=== PATIENT | male | born 1950 | race Caucasian/White ===

== ENCOUNTER 2023-09-14 14:38 | Inpatient (IN) | payer MEDICARE, BC ==
[~2023-09-14] VITALS: Ht 195.6 cm; Wt 93.4 kg
[2023-09-14] MEDS ORDERED: ISOVUE-370 76% 100ML VIAL As Ordered ONE (16:37)
[2023-09-14 16:46] LABS: LIPASE 37 U/L (12-53)
[2023-09-14 16:47] LABS: CK-MB VALUE MASS < 1.0 NG/ML (<3.6)
[2023-09-14 16:48] LABS: ALKALINE PHOSPHATASE 78 U/L (46-116); ALT/SGPT 23 U/L (7.0-40); AST/SGOT 15 U/L (<34); BILIRUBIN,TOTAL 1.6 MG/DL (0.3-1.2); BLOOD UREA NITROGEN 15 MG/DL (9-23); CALCIUM LEVEL 8.5 MG/DL (8.3-10.6); CARBON DIOXIDE LEVEL 25 MMOL/L (20-31); CHLORIDE LEVEL 109 MMOL/L (98-107); CREATININE FOR GFR 1.06 MG/DL (0.70-1.30); GLOMERULAR FILTRATION RATE > 60.0 (>42); GLUCOSE, FASTING 91 MG/DL (74-106); POTASSIUM SERUM 4.4 MMOL/L (3.5-5.1); SODIUM LEVEL 142 MMOL/L (136-145); TOTAL PROTEIN 5.7 G/DL (5.7-8.2)
[2023-09-14 16:57] LABS: CPK CREATINE PHOSPHOKINASE 42 U/L (46-171); MB/CK RELATIVE INDEX 2.38 (< OR =4)
[2023-09-14] MEDS ORDERED: KETOROLAC 30 MG/ML 1ML VIAL As Ordered ONE (17:23)
[2023-09-14] MEDS: HYDROCORTISONE 10 MG TAB PO ONE (17:35)
[2023-09-14] MEDS: KETOROLAC 30 MG/ML 1ML VIAL IV ONE (17:36)
[2023-09-14 19:00] LABS: VENOUS HCO3 26.4 MMOL/L (23.0-27.0); VENOUS O2 SATURATION 80.1 % (60.0-80.0); VENOUS PARTIAL PRESSURE CO2 48.4 mmHg (38.0-50.0); VENOUS PARTIAL PRESSURE O2 44.9 mmHg (30.0-50.0); VENOUS PH 7.355 UNITS (7.330-7.430); VENOUS TOTAL CO2 27.9 MMOL/L (24.0-28.0)
[2023-09-14 19:08] LABS: BASO # 0.1 10^3/uL (0.0-0.2); BASO % 0.4 % (0.0-1.0); EOS # 0.1 10^3/uL (0.0-0.5); EOS % 0.6 % (0.0-3.0); HEMATOCRIT 52.1 % (42.0-52.0); HEMOGLOBIN 17.1 g/dl (13.5-17.5); INR 1.18; LYMPH # 1.3 10^3/uL (1.5-5.0); LYMPH % 8.3 % (24.0-44.0); MEAN CORPUSCULAR HEMOGLOBIN 30.7 pg (27.0-33.0); MEAN CORPUSCULAR HGB CONC 32.8 g/dl (32.0-36.5); MEAN CORPUSCULAR VOLUME 93.5 fl (80.0-96.0); MONO # 1.2 10^3/uL (0.0-0.8); MONO % 7.6 % (2.0-8.0); NEUTROPHILS # 12.8 10^3/uL (1.5-8.5); NEUTROPHILS % 82.3 % (36.0-66.0); PLATELET COUNT, AUTOMATED 183 10^3/uL (150-450); PROTHROMBIN TIME 14.7 SECONDS (12.5-14.5); RED BLOOD COUNT 5.57 10^6/uL (4.30-6.10); WHITE BLOOD COUNT 15.6 10^3/uL (4.0-10.0)
[2023-09-14] MEDS ORDERED: HEPARIN SOD (PORCINE) 5000UNITS/ML 1ML VIAL/SYRINGE IV PRN ×2 (19:20→21:05)
[2023-09-14 19:48] LABS: CK-MB VALUE MASS < 1.0 NG/ML (<3.6); CPK CREATINE PHOSPHOKINASE 46 U/L (46-171); MB/CK RELATIVE INDEX 2.17 (< OR =4)
[2023-09-14 19:50] LABS: CK-MB VALUE MASS < 1.0 NG/ML (<3.6); CPK CREATINE PHOSPHOKINASE 36 U/L (46-171); MB/CK RELATIVE INDEX 2.77 (< OR =4)
[2023-09-14 19:56] LABS: HEMATOCRIT 52.1 % (42.0-52.0); HEMOGLOBIN 16.9 g/dl (13.5-17.5); MEAN CORPUSCULAR HEMOGLOBIN 30.3 pg (27.0-33.0); MEAN CORPUSCULAR HGB CONC 32.4 g/dl (32.0-36.5); MEAN CORPUSCULAR VOLUME 93.4 fl (80.0-96.0); PLATELET COUNT, AUTOMATED 198 10^3/uL (150-450); RED BLOOD COUNT 5.58 10^6/uL (4.30-6.10); WHITE BLOOD COUNT 15.6 10^3/uL (4.0-10.0)
[2023-09-14 19:58] LABS: INR 1.15; PARTIAL THROMBOPLASTIN TIME 24.9 SECONDS (24.8-34.2); PROTHROMBIN TIME 14.4 SECONDS (12.5-14.5)
[2023-09-14] MEDS ORDERED: PRAM0.5T4 PO (20:00)
[2023-09-14] MEDS ORDERED: HYDR-4468 PO ×2 (20:00)
[2023-09-14] MEDS ORDERED: LIOT5TAB6 PO (20:00)
[2023-09-14] MEDS ORDERED: TEST200I14 IM (20:00)
[2023-09-14] MEDS ORDERED: LEVO125T4 PO (20:00)
[2023-09-14] MEDS ORDERED: ATOR80TA59 PO (20:00)
[2023-09-14] MEDS ORDERED: THERTAB52 PO (20:04)
[2023-09-14] MEDS ORDERED: ASPI81TA26 PO (20:04)
[2023-09-14] MEDS ORDERED: COQ150CH PO (20:04)
[2023-09-14] MEDS ORDERED: DHEA50TA PO (20:04)
[2023-09-14] MEDS ORDERED: K2 P1TAB PO (20:04)
[2023-09-14] MEDS ORDERED: HOME MED LIST COMPLETE! XX SCH (20:05)
[2023-09-14] MEDS: HEPARIN SOD (PORCINE) 5000UNITS/ML 1ML VIAL/SYRINGE IV ONE (20:33)
[2023-09-14] MEDS: HEPARIN DRIP 25,000 UNITS in IV 1 EA IV SCH (20:39)
[2023-09-14] MEDS ORDERED: MAALOX 30 ML SUSP *UDC PO PRN (21:05)
[2023-09-14] MEDS ORDERED: MOM 30ML SUSPENSION UDC PO PRN (21:05)
[2023-09-14] MEDS ORDERED: KETOROLAC 30 MG/ML 1ML VIAL IV PRN (21:25)
[2023-09-14] MEDS: ATORVASTATIN 20 MG TAB PO SCH (23:37)
[2023-09-14] MEDS: PRAMIPEXOLE 0.25 MG TAB PO SCH (23:39)
[2023-09-14] MEDS: CO-ENZYME Q10 50 MG CAP PO SCH (23:39)
[2023-09-15] VITALS (49 sets, daily range): BP systolic 90–181; BP diastolic 50–90; TEMP 97.4–98.2; O2SAT 90–99
[2023-09-15] MEDS: ACETAMINOPHEN TAB 650MG DOSE (2X325MG) PO PRN (01:34)
[2023-09-15 02:44] LABS: HEMATOCRIT 49.8 % (42.0-52.0); HEMOGLOBIN 16.3 g/dl (13.5-17.5); MEAN CORPUSCULAR HEMOGLOBIN 30.2 pg (27.0-33.0); MEAN CORPUSCULAR HGB CONC 32.7 g/dl (32.0-36.5); MEAN CORPUSCULAR VOLUME 92.2 fl (80.0-96.0); PLATELET COUNT, AUTOMATED 183 10^3/uL (150-450); WHITE BLOOD COUNT 14.9 10^3/uL (4.0-10.0)
[2023-09-15 03:18] LABS: ALBUMIN 2.8 G/DL (3.2-5.2); ALKALINE PHOSPHATASE 69 U/L (46-116); ALT/SGPT 20 U/L (7.0-40); AST/SGOT 11 U/L (<34); BILIRUBIN,TOTAL 1.8 MG/DL (0.3-1.2); BLOOD UREA NITROGEN 16 MG/DL (9-23); CALCIUM LEVEL 8.2 MG/DL (8.3-10.6); CARBON DIOXIDE LEVEL 30 MMOL/L (20-31); CHLORIDE LEVEL 108 MMOL/L (98-107); CREATININE FOR GFR 1.02 MG/DL (0.70-1.30); GLOMERULAR FILTRATION RATE > 60.0 (>42); GLUCOSE, FASTING 92 MG/DL (74-106); POTASSIUM SERUM 3.7 MMOL/L (3.5-5.1); SODIUM LEVEL 142 MMOL/L (136-145); TOTAL PROTEIN 5.4 G/DL (5.7-8.2)
[2023-09-15] MEDS: LEVOTHYROXINE 125MCG TABLET (0.125MG) PO SCH (05:47)
[2023-09-15] MEDS: ASPIRIN 81MG ENTERIC TABLET PO SCH (08:39)
[2023-09-15] MEDS: MULTIVITAMINS/MINERALS THERAP 1 TAB PO SCH (08:39)
[2023-09-15] MEDS: DOCUSATE SODIUM 100MG CAPSULE PO SCH (08:39)
[2023-09-15] MEDS: PANTOPRAZOLE 40MG TAB (PROTONIX) PO SCH (09:00)
[2023-09-15] MEDS ORDERED: PRASTERONE 50 MG PO SCH (09:00)
[2023-09-15] MEDS ORDERED: ELIQ5TAB PO (09:56)
[2023-09-15] MEDS: HYDROCORTISONE 10 MG TAB PO SCH ×2 (10:07→12:00)
[2023-09-15] MEDS: MOM 30ML SUSPENSION UDC PO SCH (10:22)
[2023-09-15] MEDS ORDERED: ATROPINE SULF 1MG/10ML SYRINGE As Ordered ONE (10:50)
[2023-09-15] MEDS ORDERED: VASOPRESSIN INJ 20UNITS/ML 1ML VIAL As Ordered ONE (10:54)
[2023-09-15] MEDS ORDERED: DOBUTamine 500 MG/250 ML BAG IN D5W (2,000 MCG/ML) As Ordered ONE (10:55)
[2023-09-15] MEDS ORDERED: DOBUTamine HCL 500,000 MCG in IV 1 EA IV SCH (10:55)
[2023-09-15] MEDS: DOBUTamine HCL 500,000 MCG in IV 1 EA IV SCH (11:15)
[2023-09-15 11:16] LABS: MAGNESIUM LEVEL 1.7 MG/DL (1.8-2.4)
[2023-09-15] MEDS: VASOPRESSIN INJ 20 UNITS in NS 499 ML IV SCH (13:10)
[2023-09-15] MEDS: oxyCODONE 5MG TAB PO PRN (15:40)
[2023-09-15] MEDS ORDERED: MORPHINE 2 MG/ML 1ML VIAL IV PRN (16:50)
[2023-09-15] MEDS: HEPARIN DRIP 25,000 UNITS in IV 1 EA IV SCH (17:13)
[2023-09-16] VITALS (39 sets, daily range): BP systolic 135–164; BP diastolic 67–79; PULSE 72; TEMP 97.5–98.1; O2SAT 93–100
[2023-09-16 02:24] LABS: BASO # 0.1 10^3/uL (0.0-0.2); BASO % 0.4 % (0.0-1.0); EOS # 0.1 10^3/uL (0.0-0.5); EOS % 0.3 % (0.0-3.0); HEMATOCRIT 51.5 % (42.0-52.0); HEMOGLOBIN 16.9 g/dl (13.5-17.5); LYMPH % 6.7 % (24.0-44.0); MEAN CORPUSCULAR HEMOGLOBIN 30.7 pg (27.0-33.0); MEAN CORPUSCULAR HGB CONC 32.8 g/dl (32.0-36.5); MEAN CORPUSCULAR VOLUME 93.6 fl (80.0-96.0); MONO # 1.3 10^3/uL (0.0-0.8); MONO % 8.9 % (2.0-8.0); NEUTROPHILS # 12.2 10^3/uL (1.5-8.5); NEUTROPHILS % 82.7 % (36.0-66.0); PLATELET COUNT, AUTOMATED 202 10^3/uL (150-450); WHITE BLOOD COUNT 14.7 10^3/uL (4.0-10.0)
[2023-09-16 03:01] LABS: BLOOD UREA NITROGEN 14 MG/DL (9-23); CALCIUM LEVEL 8.2 MG/DL (8.3-10.6); CARBON DIOXIDE LEVEL 32 MMOL/L (20-31); CHLORIDE LEVEL 109 MMOL/L (98-107); CREATININE FOR GFR 0.95 MG/DL (0.70-1.30); GLOMERULAR FILTRATION RATE > 60.0 (>42); GLUCOSE, FASTING 100 MG/DL (74-106); POTASSIUM SERUM 4.4 MMOL/L (3.5-5.1); SODIUM LEVEL 143 MMOL/L (136-145)
[2023-09-16] MEDS: HYDROCORTISONE 10 MG TAB PO SCH (09:12)
[2023-09-16] MEDS: ENOXAPARIN 100MG/1ML SYRINGE (J1650 PER 10MG) SC SCH (10:15)
[2023-09-16] MEDS: LIOTHYRONINE 5 MCG PO SCH (20:27)
[2023-09-17 03:05] VITALS: BP 138/79; TEMP 97.3; O2SAT 96
[2023-09-17 06:04] LABS: BASO # 0.1 10^3/uL (0.0-0.2); BASO % 0.5 % (0.0-1.0); EOS # 0.3 10^3/uL (0.0-0.5); EOS % 2.3 % (0.0-3.0); HEMATOCRIT 48.1 % (42.0-52.0); HEMOGLOBIN 15.7 g/dl (13.5-17.5); LYMPH % 13.4 % (24.0-44.0); MEAN CORPUSCULAR HEMOGLOBIN 30.1 pg (27.0-33.0); MEAN CORPUSCULAR HGB CONC 32.6 g/dl (32.0-36.5); MEAN CORPUSCULAR VOLUME 92.3 fl (80.0-96.0); MONO # 1.3 10^3/uL (0.0-0.8); MONO % 8.5 % (2.0-8.0); NEUTROPHILS # 11.1 10^3/uL (1.5-8.5); NEUTROPHILS % 74.4 % (36.0-66.0); PLATELET COUNT, AUTOMATED 192 10^3/uL (150-450); RED BLOOD COUNT 5.21 10^6/uL (4.30-6.10); WHITE BLOOD COUNT 14.9 10^3/uL (4.0-10.0)
[2023-09-17 06:37] LABS: BLOOD UREA NITROGEN 17 MG/DL (9-23); CALCIUM LEVEL 8.2 MG/DL (8.3-10.6); CARBON DIOXIDE LEVEL 34 MMOL/L (20-31); CHLORIDE LEVEL 108 MMOL/L (98-107); CREATININE FOR GFR 1.16 MG/DL (0.70-1.30); GLOMERULAR FILTRATION RATE > 60.0 (>42); GLUCOSE, FASTING 84 MG/DL (74-106); POTASSIUM SERUM 3.9 MMOL/L (3.5-5.1); SODIUM LEVEL 144 MMOL/L (136-145)
[2023-09-17 08:07] VITALS: BP 162/72; TEMP 98.4; O2SAT 93
[2023-09-17] MEDS: TESTOSTERONE IM SCH (09:00)
[2023-09-17] MEDS ORDERED: OXYC-517 PO (09:10)
[2023-09-17] MEDS ORDERED: XARE15TA PO (10:56)
[2023-09-19 01:12] LABS: PROTEIN C FUNCTIONAL ACTIVITY 123 % normal (70-180); PROTEIN S FUNCTIONAL ACTIVITY 82 % normal (70-150)
[2023-09-19 01:29] LABS: CARDIOLIPIN IGA ANTIBODY < 2.0 APL-U/mL (<20.0); CARDIOLIPIN IGG ANTIBODY < 2.0 GPL-U/mL (<20.0); CARDIOLIPIN IGM ANTIBODY < 2.0 MPL-U/mL (<20.0)
[2023-09-19 17:50] LABS: DRVV SCREEN 39.5 SECONDS
[2023-09-19 18:15] LABS: PTT LUPUS TYPE ANTICOAG SCREEN 1.04 (0-1.20)
== END 2023-09-17 11:53 | disposition home or self-care (01) | DRG 176 ==
LOC: M ED 14:38 → M ED INP 21:05 → M PCU 23:53 → M ICU 09-15 10:48 → M PCU 09-16 12:59
PROVIDERS: ADMIT Preventive Medicine Undersea and Hyperbaric Medicine; ATTEND Internal Medicine Nephrology
PROC: B246ZZZ Ultrasonography of Right and Left Heart (ICD-10-PCS; principal; 2023-09-15)
DX: I26.94 Multiple subsegmental thrombotic pulmonary emboli without acute cor pulmonale (principal); E27.3 Drug-induced adrenocortical insufficiency; J98.11 Atelectasis; R91.1 Solitary pulmonary nodule; E29.1 Testicular hypofunction; E03.9 Hypothyroidism, unspecified; I69.311 Memory deficit following cerebral infarction; Z79.82 Long term (current) use of aspirin; Z79.890 Hormone replacement therapy; Z79.899 Other long term (current) drug therapy; E78.5 Hyperlipidemia, unspecified; R00.1 Bradycardia, unspecified; R55 Syncope and collapse; I95.9 Hypotension, unspecified

== ENCOUNTER → 2023-09-27 | Outpatient (REF) | payer MEDICARE, BC ==
[~2023-09-27] MED LIST: ASPI81TA26 PO; ATOR80TA59 PO; BENZ200C70 PO; CEFD300CAP PO; COQ150CH PO; DHEA50TA PO; ELIQ5TAB PO; HYDR-4468 PO; K2 P1TAB PO; LEVO125T4 PO; LIOT5TAB6 PO; OXYC-517 PO; PRAM0.5T4 PO; PRED20TA PO; TEST200I14 IM; THERTAB52 PO; XARE15TA PO
== END ==
LOC: M WUC 19:10
PROVIDERS: ATTEND Student in an Organized Health Care Education/Training Program
DX: J06.9 Acute upper respiratory infection, unspecified (principal)

== ENCOUNTER 2023-09-28 10:39 | Inpatient (IN) | payer MEDICARE, BC ==
[~2023-09-28] VITALS: Ht 195.6 cm; Wt 93.6 kg
[~2023-09-28 10:39] MED LIST changes: -BENZ200C70 PO; -CEFD300CAP PO; -PRED20TA PO
[2023-09-28] MEDS ORDERED: PRED20TA PO (11:03)
[2023-09-28 15:02] LABS: BASO # 0.1 10^3/uL (0.0-0.2); BASO % 0.3 % (0.0-1.0); HEMOGLOBIN 17.8 g/dl (13.5-17.5); LYMPH # 0.8 10^3/uL (1.5-5.0); LYMPH % 4.2 % (24.0-44.0); MEAN CORPUSCULAR HEMOGLOBIN 30.3 pg (27.0-33.0); MEAN CORPUSCULAR HGB CONC 32.4 g/dl (32.0-36.5); MEAN CORPUSCULAR VOLUME 93.7 fl (80.0-96.0); MONO # 0.9 10^3/uL (0.0-0.8); MONO % 4.4 % (2.0-8.0); NEUTROPHILS # 17.6 10^3/uL (1.5-8.5); NEUTROPHILS % 90.1 % (36.0-66.0); PLATELET COUNT, AUTOMATED 225 10^3/uL (150-450); RED BLOOD COUNT 5.87 10^6/uL (4.30-6.10); WHITE BLOOD COUNT 19.5 10^3/uL (4.0-10.0)
[2023-09-28 15:18] LABS: INR 2.56; PARTIAL THROMBOPLASTIN TIME 42.3 SECONDS (24.8-34.2); PROTHROMBIN TIME 26.6 SECONDS (12.5-14.5)
[2023-09-28 15:26] LABS: BLOOD UREA NITROGEN 20 MG/DL (9-23); CALCIUM LEVEL 8.5 MG/DL (8.3-10.6); CARBON DIOXIDE LEVEL 32 MMOL/L (20-31); CHLORIDE LEVEL 105 MMOL/L (98-107); CK-MB VALUE MASS < 1.0 NG/ML (<3.6); CREATININE FOR GFR 1.08 MG/DL (0.70-1.30); GLOMERULAR FILTRATION RATE > 60.0 (>42); GLUCOSE, FASTING 145 MG/DL (74-106); POTASSIUM SERUM 4.4 MMOL/L (3.5-5.1); SODIUM LEVEL 141 MMOL/L (136-145)
[2023-09-28 15:28] LABS: CPK CREATINE PHOSPHOKINASE 23 U/L (46-171); MB/CK RELATIVE INDEX 4.34 (< OR =4)
[2023-09-28] MEDS: DOXYCYCLINE HYCLATE 100MG TABLET PO ONE (19:16)
[2023-09-28] MEDS: cefTRIAXone SOD 1 GM in D5W MINI-BAG PLUS 50 ML IV ONE (19:17)
[2023-09-28] MEDS ORDERED: MOM 30ML SUSPENSION UDC PO PRN (21:10)
[2023-09-28] MEDS ORDERED: ACETAMINOPHEN TAB 650MG DOSE (2X325MG) PO PRN (21:10)
[2023-09-28] MEDS ORDERED: VANCOMYCIN HCL 1,000 MG, VIAL MATE ADAPTER 1 EACH in NS 250 ML IV SCH (21:40)
[2023-09-28 21:47] LABS: PROCALCITONIN 0.06 ng/ml
[2023-09-28] MEDS ORDERED: BENZ200C70 PO (21:53)
[2023-09-28] MEDS ORDERED: HOME MED LIST COMPLETE! XX SCH (21:55)
[2023-09-28] MEDS: FUROSEMIDE 20MG/2ML VIAL IV ONE (22:19)
[2023-09-28 22:44] VITALS: BP 162/86; TEMP 97.5; O2SAT 95
[2023-09-28] MEDS ORDERED: BENZONATATE 100MG CAPSULE PO PRN (22:55)
[2023-09-28] MEDS: RIVAROXABAN 15MG TAB (XARELTO) PO SCH (23:59)
[2023-09-29] VITALS (7 sets, daily range): BP systolic 130–154; BP diastolic 48–75; TEMP 97.5–97.7; O2SAT 90–98
[2023-09-29] MEDS: PIPERACILLIN/TAZOBACTAM SOD 4.5 GM in D5W MINI-BAG PLUS 50 ML IV SCH
[2023-09-29] MEDS: LIOTHYRONINE 5 MCG PO SCH (00:59)
[2023-09-29] MEDS: VANCOMYCIN HCL 1,000 MG, VIAL MATE ADAPTER 1 EACH in D5W 250 ML IV ONE ×2 (01:59→03:22)
[2023-09-29] MEDS: LEVOTHYROXINE 125MCG TABLET (0.125MG) PO SCH (06:13)
[2023-09-29 06:28] LABS: HEMATOCRIT 49.8 % (42.0-52.0); HEMOGLOBIN 16.2 g/dl (13.5-17.5); MEAN CORPUSCULAR HEMOGLOBIN 30.1 pg (27.0-33.0); MEAN CORPUSCULAR HGB CONC 32.5 g/dl (32.0-36.5); MEAN CORPUSCULAR VOLUME 92.6 fl (80.0-96.0); PLATELET COUNT, AUTOMATED 229 10^3/uL (150-450); RED BLOOD COUNT 5.38 10^6/uL (4.30-6.10); WHITE BLOOD COUNT 22.8 10^3/uL (4.0-10.0)
[2023-09-29 07:04] LABS: ALBUMIN 2.6 G/DL (3.2-5.2); ALKALINE PHOSPHATASE 85 U/L (46-116); ALT/SGPT 22 U/L (7.0-40); AST/SGOT 12 U/L (<34); BLOOD UREA NITROGEN 18 MG/DL (9-23); CALCIUM LEVEL 8.2 MG/DL (8.3-10.6); CARBON DIOXIDE LEVEL 30 MMOL/L (20-31); CHLORIDE LEVEL 107 MMOL/L (98-107); CREATININE FOR GFR 1.04 MG/DL (0.70-1.30); GLOMERULAR FILTRATION RATE > 60.0 (>42); GLUCOSE, FASTING 91 MG/DL (74-106); POTASSIUM SERUM 3.8 MMOL/L (3.5-5.1); SODIUM LEVEL 143 MMOL/L (136-145); TOTAL PROTEIN 5.5 G/DL (5.7-8.2)
[2023-09-29] MEDS: HYDROCORTISONE 10 MG TAB PO SCH ×2 (08:22→12:39)
[2023-09-29] MEDS: PANTOPRAZOLE 40MG TAB (PROTONIX) PO SCH (08:25)
[2023-09-29] MEDS: VANCOMYCIN HCL 750 MG, VIAL MATE ADAPTER 1 EACH in D5W 250 ML IV SCH ×2 (09:10→10:15)
[2023-09-29 09:27] LABS: PROCALCITONIN 0.06 ng/ml
[2023-09-29] MEDS: ASPIRIN 81MG ENTERIC TABLET PO SCH (21:55)
[2023-09-29] MEDS: ATORVASTATIN 20 MG TAB PO SCH (21:56)
[2023-09-30] VITALS (7 sets, daily range): BP systolic 132–139; BP diastolic 62–76; TEMP 97.6–97.7; O2SAT 93–97
[2023-09-30 06:14] LABS: BASO # 0.1 10^3/uL (0.0-0.2); BASO % 0.7 % (0.0-1.0); EOS # 0.7 10^3/uL (0.0-0.5); EOS % 3.8 % (0.0-3.0); HEMATOCRIT 47.7 % (42.0-52.0); HEMOGLOBIN 15.7 g/dl (13.5-17.5); LYMPH # 1.8 10^3/uL (1.5-5.0); LYMPH % 10.7 % (24.0-44.0); MEAN CORPUSCULAR HEMOGLOBIN 30.3 pg (27.0-33.0); MEAN CORPUSCULAR HGB CONC 32.9 g/dl (32.0-36.5); MEAN CORPUSCULAR VOLUME 91.9 fl (80.0-96.0); MONO # 1.7 10^3/uL (0.0-0.8); MONO % 9.7 % (2.0-8.0); NEUTROPHILS # 12.6 10^3/uL (1.5-8.5); NEUTROPHILS % 74.2 % (36.0-66.0); PLATELET COUNT, AUTOMATED 205 10^3/uL (150-450); RED BLOOD COUNT 5.19 10^6/uL (4.30-6.10)
[2023-09-30 06:41] LABS: BLOOD UREA NITROGEN 20 MG/DL (9-23); CALCIUM LEVEL 8.3 MG/DL (8.3-10.6); CARBON DIOXIDE LEVEL 30 MMOL/L (20-31); CHLORIDE LEVEL 108 MMOL/L (98-107); CREATININE FOR GFR 1.15 MG/DL (0.70-1.30); GLOMERULAR FILTRATION RATE > 60.0 (>42); GLUCOSE, FASTING 90 MG/DL (74-106); POTASSIUM SERUM 3.7 MMOL/L (3.5-5.1); SODIUM LEVEL 144 MMOL/L (136-145)
[2023-09-30] MEDS: PREVNAR-20 VACCINE 0.5ML SYRINGE IM.IMMUN ONE (17:06)
[2023-10-01 04:10] VITALS: BP 141/76; TEMP 97.3; O2SAT 92
[2023-10-01 06:21] LABS: HEMOGLOBIN 15.7 g/dl (13.5-17.5); MEAN CORPUSCULAR HEMOGLOBIN 30.3 pg (27.0-33.0); MEAN CORPUSCULAR HGB CONC 32.7 g/dl (32.0-36.5); MEAN CORPUSCULAR VOLUME 92.7 fl (80.0-96.0); PLATELET COUNT, AUTOMATED 208 10^3/uL (150-450); RED BLOOD COUNT 5.18 10^6/uL (4.30-6.10)
[2023-10-01 06:39] LABS: BLOOD UREA NITROGEN 17 MG/DL (9-23); CALCIUM LEVEL 8.1 MG/DL (8.3-10.6); CARBON DIOXIDE LEVEL 31 MMOL/L (20-31); CHLORIDE LEVEL 108 MMOL/L (98-107); CREATININE FOR GFR 1.24 MG/DL (0.70-1.30); GLOMERULAR FILTRATION RATE > 60.0 (>42); GLUCOSE, FASTING 79 MG/DL (74-106); POTASSIUM SERUM 3.9 MMOL/L (3.5-5.1); SODIUM LEVEL 142 MMOL/L (136-145)
[2023-10-01 08:00] VITALS: O2SAT 97
[2023-10-01] MEDS ORDERED: CEFD300CAP PO (08:45)
[2023-10-01 12:00] VITALS: BP 168/82; TEMP 97.7; O2SAT 95
[2023-10-01 16:00] VITALS: O2SAT 96
[2023-10-01 20:50] VITALS: BP 121/66; TEMP 97.3; O2SAT 97
[2023-10-02 04:30] VITALS: BP 125/67; TEMP 97.7; O2SAT 93
[2023-10-02] MEDS ORDERED: DOXY100T PO (09:15)
[2023-10-02 09:23] LABS: C REACTIVE PROTEIN QUANTITATIV 3.4 MG/DL (<1.0)
[2023-10-02 09:36] LABS: PROCALCITONIN 0.1 ng/ml
[2023-10-02] MEDS: DOXYCYCLINE HYCLATE 100MG TABLET PO SCH (10:12)
[2023-10-02] MEDS: CEFDINIR 300 MG CAP (OMNICEF) PO SCH (10:12)
[2023-10-07 15:48] LABS: TESTOSTERONE FREE (DIRECT) 84.6 pg/mL (30.0-135.0)
== END 2023-10-02 10:45 | disposition home or self-care (01) | DRG 194 ==
LOC: M ED 10:39 → M ED INP 10:40 → M MSPAV 22:38 → OBSVTOIN 09-30 16:14 → UNDODISIN 10-02 10:45
PROVIDERS: ADMIT Family Medicine; ATTEND General Practice
DX: J18.9 Pneumonia, unspecified organism (principal); J90 Pleural effusion, not elsewhere classified; E03.9 Hypothyroidism, unspecified; E29.1 Testicular hypofunction; E78.5 Hyperlipidemia, unspecified; Z86.73 Personal history of transient ischemic attack (TIA), and cerebral infarction without residual deficits; Z79.82 Long term (current) use of aspirin; Z86.711 Personal history of pulmonary embolism; Z79.890 Hormone replacement therapy; Z79.01 Long term (current) use of anticoagulants; Z79.899 Other long term (current) drug therapy; R91.1 Solitary pulmonary nodule

== ENCOUNTER → 2023-10-08 | Outpatient (CLI) | payer MEDICARE, BC ==
[~2023-10-08] MED LIST changes: +BENZ200C70 PO; +CEFD300CAP PO; +DOXY100T PO; +PRED20TA PO
[2023-10-08 15:53] LABS: BASO # 0.1 10^3/uL (0.0-0.2); BASO % 0.5 % (0.0-1.0); EOS # 0.1 10^3/uL (0.0-0.5); HEMATOCRIT 49.2 % (42.0-52.0); LYMPH % 7.7 % (24.0-44.0); MEAN CORPUSCULAR HEMOGLOBIN 30.4 pg (27.0-33.0); MEAN CORPUSCULAR HGB CONC 32.5 g/dl (32.0-36.5); MEAN CORPUSCULAR VOLUME 93.4 fl (80.0-96.0); MONO # 0.7 10^3/uL (0.0-0.8); MONO % 5.5 % (2.0-8.0); NEUTROPHILS # 10.5 10^3/uL (1.5-8.5); NEUTROPHILS % 83.5 % (36.0-66.0); PLATELET COUNT, AUTOMATED 181 10^3/uL (150-450); RED BLOOD COUNT 5.27 10^6/uL (4.30-6.10); WHITE BLOOD COUNT 12.5 10^3/uL (4.0-10.0)
[2023-10-08 16:19] LABS: CHOLESTEROL RISK RATIO 2.66 (<5); HDL CHOLESTEROL 41.7 MG/DL (>40); LDL CHOLESTEROL 48.3 MG/DL (<100); NON-HDL-C 69.3 MG/DL
[2023-10-08 16:23] LABS: THYROID STIMULATING HORMONE 0.008 uIU/ML (0.55-4.78)
[2023-10-08 17:10] LABS: FREE T4 1.04 NG/DL (0.89-1.76)
== END ==
LOC: M LAB 15:01
PROVIDERS: ATTEND Internal Medicine Pulmonary Disease
DX: R91.8 Other nonspecific abnormal finding of lung field (principal); E03.9 Hypothyroidism, unspecified; E78.5 Hyperlipidemia, unspecified; D75.1 Secondary polycythemia

== ENCOUNTER → 2023-10-15 | Outpatient (CLI) | payer MEDICARE, BC | LOC: M PLARAD 14:52 | PROVIDERS: ATTEND Internal Medicine Pulmonary Disease | DX: R91.8 Other nonspecific abnormal finding of lung field (principal) | CPT/HCPCS: 78815; A9552 ==

== ENCOUNTER → 2023-11-06 | Outpatient (CLI) | payer MEDICARE, BC ==
[~2023-11-06] MED LIST changes: +LISI10TA22; +NOXI1TAB PO; +PEPC1TAB5 PO
[2023-11-06 13:21] LABS: BASO # 0.1 10^3/uL (0.0-0.2); BASO % 0.5 % (0.0-1.0); EOS # 0.3 10^3/uL (0.0-0.5); HEMATOCRIT 47.9 % (42.0-52.0); HEMOGLOBIN 15.4 g/dl (13.5-17.5); LYMPH # 2.4 10^3/uL (1.5-5.0); LYMPH % 24.7 % (24.0-44.0); MEAN CORPUSCULAR HEMOGLOBIN 29.4 pg (27.0-33.0); MEAN CORPUSCULAR HGB CONC 32.2 g/dl (32.0-36.5); MEAN CORPUSCULAR VOLUME 91.6 fl (80.0-96.0); MONO # 0.8 10^3/uL (0.0-0.8); NEUTROPHILS # 6.1 10^3/uL (1.5-8.5); NEUTROPHILS % 63.1 % (36.0-66.0); PLATELET COUNT, AUTOMATED 241 10^3/uL (150-450); RED BLOOD COUNT 5.23 10^6/uL (4.30-6.10); WHITE BLOOD COUNT 9.7 10^3/uL (4.0-10.0)
[2023-11-06 14:01] LABS: ALBUMIN 3.3 G/DL (3.2-5.2); BILIRUBIN,TOTAL 1.1 MG/DL (0.3-1.2); CALCIUM LEVEL 9.6 MG/DL (8.3-10.6); CREATININE FOR GFR 1.3 MG/DL (0.70-1.30); FREE T3 3.7 PG/ML (2.3-4.2); GLOMERULAR FILTRATION RATE 57.4 (>42); POTASSIUM SERUM 4.4 MMOL/L (3.5-5.1); TOTAL PROTEIN 6.3 G/DL (5.7-8.2); TOTAL T3 143.9 NG/DL (60.0-181.0)
[2023-11-11 12:52] LABS: TESTOSTERONE FREE (DIRECT) 1.1 pg/mL (30.0-135.0)
== END ==
LOC: M PLALAB 09:46
DX: D75.1 Secondary polycythemia (principal); E23.0 Hypopituitarism; I10 Essential (primary) hypertension; Z86.711 Personal history of pulmonary embolism; E03.9 Hypothyroidism, unspecified

== ENCOUNTER → 2023-11-19 | Outpatient (CLI) | payer MEDICARE, BC ==
[2023-11-19 13:45] LABS: BLOOD UREA NITROGEN 17 MG/DL (9-23); CALCIUM LEVEL 8.4 MG/DL (8.3-10.6); CARBON DIOXIDE LEVEL 33 MMOL/L (20-31); CHLORIDE LEVEL 107 MMOL/L (98-107); CREATININE FOR GFR 1.25 MG/DL (0.70-1.30); FREE T4 1.58 NG/DL (0.89-1.76); GLOMERULAR FILTRATION RATE > 60.0 (>42); GLUCOSE, FASTING 98 MG/DL (74-106); POTASSIUM SERUM 4.8 MMOL/L (3.5-5.1); PSA SCREENING 0.75 NG/ML (< 4.00); SODIUM LEVEL 139 MMOL/L (136-145); TESTOSTERONE 1019 NG/DL (241-827); THYROID STIMULATING HORMONE 0.008 uIU/ML (0.55-4.78)
== END ==
LOC: M PLALAB 10:15
PROVIDERS: ATTEND Nurse Practitioner Family
DX: E27.1 Primary adrenocortical insufficiency (principal); Z12.5 Encounter for screening for malignant neoplasm of prostate; E29.1 Testicular hypofunction; E03.9 Hypothyroidism, unspecified

== ENCOUNTER → 2023-11-19 | Outpatient (CLI) | payer MEDICARE, BC ==
[2023-11-19 13:25] LABS: BASO # 0.1 10^3/uL (0.0-0.2); BASO % 0.4 % (0.0-1.0); EOS # 0.1 10^3/uL (0.0-0.5); EOS % 1.2 % (0.0-3.0); HEMATOCRIT 45.3 % (42.0-52.0); HEMOGLOBIN 14.5 g/dl (13.5-17.5); LYMPH # 1.3 10^3/uL (1.5-5.0); LYMPH % 11.3 % (24.0-44.0); MEAN CORPUSCULAR HEMOGLOBIN 29.4 pg (27.0-33.0); MEAN CORPUSCULAR VOLUME 91.7 fl (80.0-96.0); MONO # 0.8 10^3/uL (0.0-0.8); MONO % 6.5 % (2.0-8.0); NEUTROPHILS # 9.2 10^3/uL (1.5-8.5); NEUTROPHILS % 79.4 % (36.0-66.0); PLATELET COUNT, AUTOMATED 185 10^3/uL (150-450); RED BLOOD COUNT 4.94 10^6/uL (4.30-6.10); WHITE BLOOD COUNT 11.6 10^3/uL (4.0-10.0)
== END ==
LOC: M PLALAB 10:19 → M LAB 11:27
PROVIDERS: ATTEND Internal Medicine Hematology & Oncology
DX: I26.99 Other pulmonary embolism without acute cor pulmonale (principal); Z79.899 Other long term (current) drug therapy; E27.1 Primary adrenocortical insufficiency; E29.1 Testicular hypofunction; Z12.5 Encounter for screening for malignant neoplasm of prostate; E03.9 Hypothyroidism, unspecified
CPT/HCPCS: 36415; 80048; 83090; 84403; 84439; 84443; 85025; 85240; 85270; G0103